=== PATIENT | female | born 1950 | race Caucasian/White ===

== ENCOUNTER → 2018-01-07 18:00 | Outpatient (CLI) | payer MEDICARE ==
[2018-03-10 05:45] VITALS: BMI 37.7
== END ==
LOC: D.MAMMO 10-23 11:15
DX: Z12.31 Encounter for screening mammogram for malignant neoplasm of breast (principal)

== ENCOUNTER 2018-03-09 23:55 | Inpatient (IN) | payer MEDICARE, BC ==
[~2018-03-09] VITALS: Ht 167.6 cm; Wt 106.0 kg
[2018-03-10] VITALS (20 sets, daily range): BP systolic 55–158; BP diastolic 20–103; Ht 167.6 cm; Wt 106.0 kg
[2018-03-10 00:13] LABS: HEMATOCRIT 51.4 % (36.0-48.0); HEMOGLOBIN 16.7 g/dL (12-16); MCH 30.1 pg (26.0-34.0); MCHC 32.5 g/dL (31.0-37.0); MCV 92.6 fL (80.0-100.0); MEAN PLATELET VOLUME 12.2 fL (7.4-10.4); PLATELET COUNT 176 10x3/uL (130-400); RBC 5.55 10x6/uL (4.00-5.40); RDW 12.3 % (11.5-14.5); WBC 29.5 10x3/uL (4.8-10.8)
[2018-03-10 00:37] LABS: EOSINOPHILS 1 % (0-7); LYMPHOCYTES 38 % (15-50); MONOCYTES 4 % (2-11); NEUTROPHILS 51 % (40-80); PLATELET ESTIMATE NORMAL
[2018-03-10 00:38] LABS: PLATELET MORPHOLOGY GIANT PLTS PRESENT
[2018-03-10 01:00] LABS: ALBUMIN 3.3 g/dL (3.4-5.0); ALKALINE PHOSPHATASE 69 U/L (46-116); ALT (SGPT) 27 U/L (10-68); BILIRUBIN - TOTAL 0.38 mg/dL (0.2-1.3); CALCIUM 9.3 mg/dL (8.5-10.1); CARBON DIOXIDE 15.1 mmol/L (21.0-32.0); CHLORIDE - SERUM 104 mmol/L (98-107); CKMB 1.9 U/L (0.0-3.6); CREATINE KINASE 102 UL (21-215); CREATININE - SERUM 1.5 mg/dL (0.6-1.3); POTASSIUM - SERUM 3.8 mmol/L (3.5-5.1); PROTEIN - SERUM 8.2 g/dL (6.4-8.2); SODIUM 141 mmol/L (136-145); TROPONIN-I 0.059 ng/mL (0.000-0.060); UREA NITROGEN 28 mg/dL (7-18); eGFR NON AFRICAN AMERICAN 37 mL/min (90-120)
[2018-03-10 01:01] LABS: CALC OSMOLALITY 308 mosm/kg (275-300); GLUCOSE 488 mg/dL (74-106)
[2018-03-10 10:03] LABS: BASOPHILS 0.3 % (0-2); BILIRUBIN - TOTAL 0.55 mg/dL (0.2-1.3); CALCIUM 8.6 mg/dL (8.5-10.1); EOSINOPHILS 0.1 % (0-7); HEMATOCRIT 49.1 % (36.0-48.0); HEMOGLOBIN 15.7 g/dL (12-16); IMMATURE GRANULOCYTES 1.8 % (0-5); MCH 30.8 pg (26.0-34.0); MCV 96.3 fL (80.0-100.0); MEAN PLATELET VOLUME 12.8 fL (7.4-10.4); MONOCYTES 2.8 % (2-11); PLATELET COUNT 234 10x3/uL (130-400); POTASSIUM - SERUM 3.9 mmol/L (3.5-5.1); RDW 13.3 % (11.5-14.5); WBC 24.6 10x3/uL (4.8-10.8)
[2018-03-10 10:04] LABS: ALBUMIN 2.2 g/dL (3.4-5.0); ANION GAP 27.6 mmol/L (8-16); CARBON DIOXIDE 22.3 mmol/L (21.0-32.0); PROTEIN - SERUM 5.2 g/dL (6.4-8.2)
== END 2018-03-10 15:24 | DRG 871 ==
LOC: D.ER 23:55 → D.EDHOLD 03-10 03:23 → D.ICU 03-10 03:23
PROVIDERS: Emergency Medicine; Family Medicine
PROC: 5A1935Z Respiratory Ventilation, Less than 24 Consecutive Hours (ICD-10-PCS; principal; 2018-03-10)
PROC: 0BH17EZ Insertion of Endotracheal Airway into Trachea, Via Natural or Artificial Opening (ICD-10-PCS; 2018-03-10)
PROC: 05H633Z Insertion of Infusion Device into Left Subclavian Vein, Percutaneous Approach (ICD-10-PCS; 2018-03-10)
DX: A41.9 Sepsis, unspecified organism (principal); J18.9 Pneumonia, unspecified organism; R40.2313 Coma scale, best motor response, none, at hospital admission; R40.2113 Coma scale, eyes open, never, at hospital admission; R40.2213 Coma scale, best verbal response, none, at hospital admission; I26.90 Septic pulmonary embolism without acute cor pulmonale; I46.9 Cardiac arrest, cause unspecified; R09.2 Respiratory arrest; E03.9 Hypothyroidism, unspecified; E11.9 Type 2 diabetes mellitus without complications